=== PATIENT | male | born 1995 | race African-American/Black ===

== ENCOUNTER 2016-12-27 07:32 | Emergency (ER) | payer MEDICAID ==
[~2016-12-27] VITALS: Ht 167.6 cm; Wt 88.5 kg
[2016-12-27 08:04] VITALS: BP 112/79
== END 2016-12-27 09:33 | disposition home or self-care (01) ==
LOC: ER 07:32
DX: S60.041A Contusion of right ring finger without damage to nail, initial encounter (principal); S60.022A Contusion of left index finger without damage to nail, initial encounter; W03.XXXA Other fall on same level due to collision with another person, initial encounter; Y93.61 Activity, american tackle football; Y99.8 Other external cause status; Y92.89 Other specified places as the place of occurrence of the external cause
CPT/HCPCS: 73130

== ENCOUNTER 2019-07-19 10:51 | Emergency (ER) | payer MEDICAID ==
[~2019-07-19] VITALS: Ht 167.6 cm; Wt 92.1 kg
[2019-07-19 11:15] VITALS: BP 126/74
[2019-07-19 12:06] LABS: Urine Bacteria NONE SEEN /hpf (None Seen); Urine Blood 2+ /uL (Negative); Urine Specific Gravity 1.021 (1.001-1.035); Urine WBC 7 /hpf (0 - 3)
== END 2019-07-19 13:08 | disposition home or self-care (01) ==
LOC: ER 10:51
DX: N39.0 Urinary tract infection, site not specified (principal)
CPT/HCPCS: 81001

== ENCOUNTER 2019-12-24 18:55 | Emergency (ER) | payer MEDICAID ==
[~2019-12-24] VITALS: Ht 167.6 cm; Wt 90.7 kg
[2019-12-24 22:09] VITALS: BP 133/87
== END 2019-12-24 22:30 | disposition home or self-care (01) ==
LOC: ER 18:55
DX: J06.9 Acute upper respiratory infection, unspecified (principal); B07.8 Other viral warts; R11.2 Nausea with vomiting, unspecified